=== PATIENT | female | born 1995 | race Caucasian/White ===

== ENCOUNTER 2016-09-16 20:46 | Emergency (ER) | payer BC, MEDICAID ==
[~2016-09-16] VITALS: Ht 175.3 cm; Wt 86.5 kg
[~2016-09-16 20:46] MED LIST: BCP; IBUP-1222 PO; OXYC-302 PO; PREN1TAB98 PO
[2016-09-16] MEDS ORDERED: ONDANSETRON ODT 4 MG ONE (21:30)
[2016-09-16] MEDS ORDERED: ONDANSETRON ODT 4 MG PO ONE (21:30)
[2016-09-16] MEDS ORDERED: SODIUM CHLORIDE 0.9% 1,000ML IVBOLUS ONE (22:00)
[2016-09-16] MEDS ORDERED: SODIUM CHLORIDE FLUSH 10ML SYR IVF ONE (22:00)
[2016-09-16] MEDS ORDERED: MORPHINE SULFATE 4 MG/ML, 1ML IVPush PRN (22:00)
[2016-09-16] MEDS ORDERED: ONDANSETRON 2MG/ML, 2ML ONE (22:00)
[2016-09-16] MEDS ORDERED: ONDANSETRON 2MG/ML, 2ML IVPush ONE (22:00)
[2016-09-16] MEDS ORDERED: MORPHINE SULFATE 4 MG/ML, 1ML ONE (22:00)
[2016-09-16] MEDS ORDERED: MAALOX/HYOSCYAMINE/LIDOCAINE 45 ML BOTTLE PO ONE (23:00)
[2016-09-16] MEDS ORDERED: PROMETHAZINE 25 MG/ML, 1ML IM ONE (23:00)
[2016-09-16] MEDS ORDERED: PROMETHAZINE 25 MG/ML, 1ML ONE (23:12)
[2016-09-16] MEDS ORDERED: MAALOX/HYOSCYAMINE/LIDOCAINE 45 ML BOTTLE ONE (23:12)
[2016-09-16 23:17] LABS: HEMOGLOBIN 12.1 g/dL (11.7-16.4)
[2016-09-16 23:21] LABS: ASPARTATE AMINO TRANSFERASE 11 U/L (15-37); BLOOD UREA NITROGEN 8 mg/dL (7-18)
[2016-09-17 00:01] LABS: LARGE PLATELETS 1+
[2016-09-17 00:14] VITALS: BP 116/68
== END 2016-09-17 00:16 | disposition home or self-care (01) ==
LOC: ED 09-17 00:10
DX: K29.00 Acute gastritis without bleeding (principal)
CPT/HCPCS: 36415; 76700; 80053; 81001; 83690; 84703; 85025; 86677; 87086; 93005; 96361; 96372; 96374; 96375; 99285; J2405; J2550; J7030; Q0162

== ENCOUNTER 2016-10-18 22:29 | Emergency (ER) | payer BC, MEDICAID ==
[~2016-10-18] VITALS: Ht 175.3 cm; Wt 86.5 kg
[2016-10-18] MEDS ORDERED: DIPHENHYDRAMINE 50 MG/ML, 1ML IVPush ONE (23:00)
[2016-10-18] MEDS ORDERED: PROCHLORPERAZINE 5 MG/ML, 2ML IVPush ONE (23:00)
[2016-10-18] MEDS ORDERED: KETOROLAC 30 MG/1 ML IVPush ONE (23:00)
[2016-10-18] MEDS ORDERED: SODIUM CHLORIDE 0.9% 1,000ML IVBOLUS ONE (23:00)
[2016-10-18] MEDS ORDERED: SODIUM CHLORIDE FLUSH 10ML SYR IVF ONE (23:00)
[2016-10-18] MEDS ORDERED: DIPHENHYDRAMINE 50 MG/ML, 1ML ONE (23:10)
[2016-10-18] MEDS ORDERED: KETOROLAC 30 MG/1 ML ONE (23:10)
[2016-10-18] MEDS ORDERED: PROCHLORPERAZINE 5 MG/ML, 2ML ONE (23:11)
[2016-10-19] LABS: BLOOD UREA NITROGEN 7 mg/dL (7-18)
[2016-10-19 00:52] VITALS: BP 130/71
== END 2016-10-19 00:54 | disposition home or self-care (01) ==
LOC: ED 23:59
DX: G43.C0 Periodic headache syndromes in child or adult, not intractable (principal)
CPT/HCPCS: 36415; 70450; 80048; 81001; 82040; 84703; 85025; 96361; 96374; 96375; 99285; J0780; J1200; J1885; J7030

== ENCOUNTER 2016-11-23 21:44 | Emergency (ER) | payer BC, MEDICAID ==
[~2016-11-23] VITALS: Ht 175.3 cm; Wt 89.4 kg
[2016-11-23 22:27] LABS: HCG UR OBC PASS
[2016-11-24 00:39] VITALS: BP 119/71
== END 2016-11-24 00:41 | disposition home or self-care (01) ==
LOC: ED 11-24 00:35
DX: O9A.211 Injury, poisoning and certain other consequences of external causes complicating pregnancy, first trimester (principal); Z3A.01 Less than 8 weeks gestation of pregnancy; S30.1XXA Contusion of abdominal wall, initial encounter; G43.909 Migraine, unspecified, not intractable, without status migrainosus; W55.12XA Struck by horse, initial encounter; Y93.89 Activity, other specified; Y92.89 Other specified places as the place of occurrence of the external cause; Y99.8 Other external cause status
CPT/HCPCS: 36415; 76830; 81025; 84702

== ENCOUNTER 2016-12-19 13:07 | Emergency (ER) | payer BC, MEDICAID ==
[~2016-12-19] VITALS: Ht 175.3 cm; Wt 88.0 kg
[2016-12-19 14:33] LABS: ASPARTATE AMINO TRANSFERASE 15 U/L (15-37); BLOOD UREA NITROGEN 5 mg/dL (7-18)
[2016-12-19 14:53] LABS: DIFF TOTAL CELLS COUNTED 100 CELL DIFF
[2016-12-19 15:03] LABS: VERIFY COUNTS? YES
[2016-12-19 16:05] VITALS: BP 124/68
== END 2016-12-19 16:08 | disposition home or self-care (01) ==
LOC: ED 13:41
DX: O20.0 Threatened abortion (principal); O26.891 Other specified pregnancy related conditions, first trimester; R10.2 Pelvic and perineal pain; Z3A.01 Less than 8 weeks gestation of pregnancy
CPT/HCPCS: 36415; 76801; 80053; 81001; 84702; 85025; 86901; 87086; 99285

== ENCOUNTER 2017-03-24 01:22 | Outpatient (CLI) | payer BC, MEDICAID | END 2017-03-24 02:52 | disposition home or self-care (01) | LOC: LDOP 01:22 | PROVIDERS: ATTEND Obstetrics & Gynecology | DX: O26.892 Other specified pregnancy related conditions, second trimester (principal); R10.9 Unspecified abdominal pain; Z3A.20 20 weeks gestation of pregnancy | CPT/HCPCS: 59025; 81001; 87086; 99211; G0463 ==

== ENCOUNTER 2017-04-09 22:51 | Outpatient (CLI) | payer BC, MEDICAID ==
[~2017-04-09] VITALS: Ht 175.3 cm; Wt 85.0 kg
[2017-04-09 23:00] VITALS: BP 121/61
== END 2017-04-09 23:29 | disposition home or self-care (01) ==
LOC: LDOP 22:51
PROVIDERS: ATTEND Obstetrics & Gynecology
DX: O36.8120 Decreased fetal movements, second trimester, not applicable or unspecified (principal); O26.892 Other specified pregnancy related conditions, second trimester; R10.9 Unspecified abdominal pain; Z3A.20 20 weeks gestation of pregnancy
CPT/HCPCS: 59025; 99211; G0463

== ENCOUNTER 2017-04-17 14:55 | Emergency (ER) | payer BC, MEDICAID ==
[~2017-04-17] VITALS: Ht 175.3 cm; Wt 86.7 kg
[2017-04-17] MEDS ORDERED: SODIUM CHLORIDE 0.9% 1,000 ML IV ONE (15:16)
[2017-04-17] MEDS ORDERED: PREN1TAB28 PO (15:19)
[2017-04-17] MEDS ORDERED: ONDANSETRON 2MG/ML, 2ML IVPush ONE (15:30)
[2017-04-17] MEDS ORDERED: SODIUM CHLORIDE 0.9% 1,000ML IVBOLUS ONE ×2 (15:30→16:30)
[2017-04-17] MEDS ORDERED: SODIUM CHLORIDE FLUSH 10ML SYR IVF ONE (15:30)
[2017-04-17] MEDS ORDERED: ONDANSETRON 2MG/ML, 2ML ONE (15:34)
[2017-04-17 15:49] LABS: ASPARTATE AMINO TRANSFERASE 23 U/L (15-37); BLOOD UREA NITROGEN 5 mg/dL (7-18)
[2017-04-17 16:14] LABS: HEMATOCRIT 35.5 % (34.6-47.8); HEMOGLOBIN 11.5 g/dL (11.7-16.4); WHITE BLOOD COUNT 12.6 x10^3/uL (3.4-10)
[2017-04-17 17:34] VITALS: BP 112/47
== END 2017-04-17 17:43 | disposition home or self-care (01) ==
LOC: ED 15:41
DX: O99.352 Diseases of the nervous system complicating pregnancy, second trimester (principal); R55 Syncope and collapse; O99.282 Endocrine, nutritional and metabolic diseases complicating pregnancy, second trimester; E86.0 Dehydration; Z3A.24 24 weeks gestation of pregnancy; G43.909 Migraine, unspecified, not intractable, without status migrainosus
CPT/HCPCS: 36415; 80053; 81003; 85025; 93005; 96361; 96374; 99285; J2405; J7030

== ENCOUNTER 2017-06-08 13:35 | Outpatient (CLI) | payer BC, MEDICAID ==
[~2017-06-08 13:35] MED LIST changes: +PREN1TAB28 PO
[2017-06-08 14:03] VITALS: BP 106/57
[2017-06-08 14:14] LABS: AMNI OBC PASS; AMNISURE NEGATIVE (NEGATIVE)
== END 2017-06-08 15:15 | disposition home or self-care (01) ==
LOC: LDOP 13:35
PROVIDERS: ATTEND Obstetrics & Gynecology
DX: O42.913 Preterm premature rupture of membranes, unspecified as to length of time between rupture and onset of labor, third trimester (principal); Z3A.31 31 weeks gestation of pregnancy
CPT/HCPCS: 59025; 81001; 84112; 87086; 99211; G0463

== ENCOUNTER 2017-06-12 21:00 | Outpatient (CLI) | payer BC, MEDICAID ==
[~2017-06-12] VITALS: Ht 175.3 cm; Wt 86.8 kg
[2017-06-12 21:32] VITALS: BP 133/70
[2017-06-12 22:47] LABS: AMNI OBC PASS; AMNISURE NEGATIVE (NEGATIVE)
== END 2017-06-12 23:40 | disposition home or self-care (01) ==
LOC: LDOP 21:00
PROVIDERS: ATTEND Obstetrics & Gynecology
DX: O26.893 Other specified pregnancy related conditions, third trimester (principal); O23.593 Infection of other part of genital tract in pregnancy, third trimester; R10.9 Unspecified abdominal pain; M54.9 Dorsalgia, unspecified; Z3A.32 32 weeks gestation of pregnancy
CPT/HCPCS: 59025; 81001; 84112; 87086; 87210; 87808; 99211; G0463

== ENCOUNTER 2017-06-17 13:54 | Outpatient (CLI) | payer BC, MEDICAID ==
[2017-06-17 14:26] VITALS: BP 125/76
[2017-06-17 15:48] LABS: AMNI OBC PASS
[2017-06-17 15:51] LABS: AMNISURE NEGATIVE (NEGATIVE)
== END 2017-06-17 17:10 | disposition home or self-care (01) ==
LOC: LDOP 13:54
PROVIDERS: ATTEND Obstetrics & Gynecology
DX: O42.913 Preterm premature rupture of membranes, unspecified as to length of time between rupture and onset of labor, third trimester (principal); Z3A.32 32 weeks gestation of pregnancy
CPT/HCPCS: 59025; 76815; 84112; 89060; 99211; G0463; Q0114

== ENCOUNTER 2017-07-03 22:14 | Outpatient (CLI) | payer BC, MEDICAID ==
[2017-07-03 23:13] VITALS: BP 129/78
== END 2017-07-04 00:18 | disposition home or self-care (01) ==
LOC: LDOP 22:14
PROVIDERS: ATTEND Obstetrics & Gynecology
DX: O42.913 Preterm premature rupture of membranes, unspecified as to length of time between rupture and onset of labor, third trimester (principal); O26.893 Other specified pregnancy related conditions, third trimester; R10.9 Unspecified abdominal pain; M54.9 Dorsalgia, unspecified; Z3A.36 36 weeks gestation of pregnancy
CPT/HCPCS: 59025; 76815; 89060; 99211; G0463; Q0114

== ENCOUNTER 2017-07-13 00:45 | Emergency (ER) | payer BC ==
[~2017-07-13] VITALS: Ht 175.3 cm; Wt 90.0 kg
[2017-07-13 02:41] VITALS: BP 124/68
== END 2017-07-13 02:44 | disposition home or self-care (01) ==
LOC: ED 00:56
DX: O26.893 Other specified pregnancy related conditions, third trimester (principal); S79.922A Unspecified injury of left thigh, initial encounter; S79.921A Unspecified injury of right thigh, initial encounter; G43.909 Migraine, unspecified, not intractable, without status migrainosus; R73.09 Other abnormal glucose; X58.XXXA Exposure to other specified factors, initial encounter; Y93.89 Activity, other specified; Y92.89 Other specified places as the place of occurrence of the external cause; Y99.8 Other external cause status; Z3A.36 36 weeks gestation of pregnancy
CPT/HCPCS: 82962; 99281

== ENCOUNTER 2017-07-19 04:55 | Outpatient (CLI) | payer BC ==
[~2017-07-19] VITALS: Ht 175.3 cm; Wt 90.9 kg
[2017-07-19 05:21] VITALS: BP 120/71
== END 2017-07-19 05:38 | disposition home or self-care (01) ==
LOC: LDOP 04:55
PROVIDERS: ATTEND Obstetrics & Gynecology
DX: O26.893 Other specified pregnancy related conditions, third trimester (principal); R10.9 Unspecified abdominal pain; Z3A.37 37 weeks gestation of pregnancy
CPT/HCPCS: 59025; 89060; 99211; G0463; Q0114

== ENCOUNTER 2018-09-18 18:47 | Emergency (ER) | payer BC, MEDICAID ==
[~2018-09-18] VITALS: Ht 175.3 cm; Wt 75.7 kg
[2018-09-18 19:05] VITALS: BP 114/74
[2018-09-18 19:52] LABS: HCG UR SG 1.014 (1.003-1.030)
[2018-09-18] MEDS ORDERED: DIAZEPAM 5 MG TABLET ONE (20:38)
[2018-09-18] MEDS ORDERED: IBUPROFEN 200 MG TABLET ONE (20:38)
[2018-09-18] MEDS ORDERED: IBUPROFEN 800 MG TABLET PO ONE (21:00)
[2018-09-18] MEDS ORDERED: DIAZEPAM 5 MG TABLET PO ONE (21:00)
[2018-09-18] MEDS ORDERED: HYDROcodone/APAP 5/325 TABLET ONE (21:16)
== END 2018-09-18 21:24 | disposition home or self-care (01) ==
LOC: ED 21:02
DX: S29.012A Strain of muscle and tendon of back wall of thorax, initial encounter (principal); G43.909 Migraine, unspecified, not intractable, without status migrainosus; V49.49XA Driver injured in collision with other motor vehicles in traffic accident, initial encounter; Y93.89 Activity, other specified; Y92.89 Other specified places as the place of occurrence of the external cause; Y99.8 Other external cause status
CPT/HCPCS: 72072; 81025; 99284